=== PATIENT | male | born 1955 | race Caucasian/White ===

== ENCOUNTER → 2020-03-15 | Outpatient (CLI) | payer BC, SELFPAY ==
--- NOTE | 2020-03-15 14:46 | CT_ITS ---
STUDY: CT SCAN LOWER EXTREMITY RIGHT REASON FOR EXAM: Male, 64 years old. RT HIP OSTEOARTHRITIS, RAMIN PROTOCOL RADIATION DOSAGE (If Supplied By Facility): CTDIvol = ( 24.52 ) mGy, DLP = ( 1762.43 ) mGycm. Individualized dose optimization techniques were used for this CT.? TECHNIQUE: Multiple axial tomographic images of the hip joint, and knee joint were obtained. Coronal and sagittal reconstruction was obtained as well. COMPARISON: None. FINDINGS: There is evidence of a degenerative changes of the sacroiliac joints bilaterally. Marked degree of osteoarthritis involving both hip joints with marginal osteophytes involving the right acetabulum. Subchondral geodes are seen involving the right femoral head and right acetabulum. Mild narrowing of the lateral compartment of the right knee joint. CT/Extremity Lower without Contra IMPRESSION: Severe osteoarthritis involving the right hip joint as described. Electronically Signed: Néstor Jack, at 15:51 EDT , Service support ,
--- NOTE | 2020-03-15 14:48 | EKG12_ITS ---
Test Reason : PREOP Blood Pressure : / mmHG Vent. Rate : 082 BPM Atrial Rate : 082 BPM P-R Int : 186 ms QRS Dur : 100 ms QT Int : 386 ms P-R-T Axes : 027 002 008 degrees QTc Int : 450 ms Sinus rhythm with occasional Premature ventricular complexes Otherwise normal ECG Confirmed by NIKOLAS TINOCO, DMITRY ([id number]), school photograph editor DARYN ARAUJO ([id number]) on 03/19/2020 1:12:17 PM Referred By: GUSTAVO Confirmed By:BURT CONNOR MD
== END | disposition home or self-care (01) ==
LOC: CT 14:45
PROVIDERS: PCP Family Medicine; Visit Provider Specialist
DX: M16.11 Unilateral primary osteoarthritis, right hip (principal)
CPT/HCPCS: 73700; 93005

== ENCOUNTER → 2020-03-21 08:00 | Outpatient (CLI) | payer BC, SELFPAY ==
--- NOTE | 2020-03-16 08:09 | PCM.HP.BLA ---
History and Physical History and Physical [facility] Patient Name: Isiah Hendricks : 1955 From: ODALYS CLAY PA-C DATE OF SURGERY: 04/04/2020 SCHEDULED PROCEDURE: right robotic total hip arthroplasty HISTORY OF PRESENT ILLNESS: Preoperative history and physical exam was performed on March 15, 2020. This is a 64-year-old male who is been having ongoing pain for the past 5-6 years with his right hip. Pain can reach as high as a 5/10 with activity. 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 Patient has increased pain with walking, standing. He does have start up pain. His pain as being constant, aching, sore. Patient has difficult time getting up and down off of the ground with work. Patient has attempted in his own pack, meloxicam, rest, ice, heat with no relief in symptoms. Patient denies previous surgery on the right hip. Patient denies any recent chest pain, shortness of breath, fevers chills, recent infections. He does have history of hypertension. Patient will be obtaining surgical clearance from the primary care physician. After failing conservative measures and discussing treatment options with Dr. Carlito Crowley, the patient does wish to proceed with a right total hip arthroplasty. REVIEW OF SYSTEMS: ROS: Const: Denies anorexia, change in appetite, fever, hard of hearing, vision problems and weight change. CV: Denies chest pain, heart murmur, irregular heartbeat and peripheral vascular disease. Resp: Denies asthma, cough, pneumonia, sleep apnea, SOB, tuberculosis and wheezing. GI: Denies constipation, diarrhea, difficulty swallowing, heartburn, nausea, bloody stools and vomiting. : Urinary: denies incontinence. Musculo: Denies leg swelling, limp, trouble walking and weakness. Skin: Denies Raynaud's, history of shingles and tattoo. Neuro: Denies ambulatory dysfunction, dizziness, numbness/tingling and tremor. Psych: Denies anxiety, depression, insomnia, mental illness and stress. Thomas/Lymph: Denies anemia, bleeding/bruising tendency and past transfusion. Reviewed, no changes. PAST MEDICAL HISTORY: Advance Care Plan: Other Directive, POA Effective Date: 12/09/2018 Other Directive, LIVING WILL Effective Date: 12/09/2018 PMH: Medical Problems: High Blood Pressure, Hypercholesterolemia Accidents: Fracture - RT TIB/FIB FX- A CHILD Surgical Hx: None Anesthesia Complications: None Assistive Devices: Glasses Reviewed, no changes. SOCIAL HISTORY: SH: Marital: .Occupation: [employer].Work Status: Currently Working.Hand Dominance: Left-handed. Personal Habits: Smoking: Patient has never smoked.Cigarette Use: Never Smoked Cigarettes.Alcohol: Denies use.Drug Use: Denies Use.Enjoy Exercising: Never Exercises. Reviewed, no changes. VITALS: T: 97.9 T: 36.6C ALLERGIES: No Known Drug Allergy MEDICATIONS: Oxycodone HCL 5 mg 1-2 tab by mouth every 4 hours, Promethazine HCL 12.5 mg 1-2 tablets by mouth every 6 hours, Famotidine 20 mg 1 by mouth every day, Transderm Scop (1.5 MG) 1 MG/3Days 1 patch behind ear every 3 days, Meloxicam 15 mg 1 by mouth every day, Simvastatin 20 mg 1 by mouth every day, Lisinopril-Hydrochlorothiazide 10-12.5 mg 1 tab PO bid, Amlodipine Besylate 10 mg 1 by mouth every day PRE-OP EXAM: General appearance:NORMAL Other: Eyes: Conjunctivae and lids: NORMAL Pupils: ERR Ears, Nose, Mouth, and Throat: NORMAL Other: Inspection of lips, teeth and gums: NORMAL Other: Neck: Examination of neck: no masses noted. Respiratory: Assessment of respiratory effort: NORMAL Other: Auscultation of lungs: clear to auscultation no wheezes, rhonchi or rales. Cardiovascular: Auscultation of heart: regular rate and rhythm, no murmurs, gallops or rubs. Exam of carotid arteries: NORMAL Other: Gastrointestinal: Exam of abdomen: soft, nontender, nondistended bowel sounds present. PHYSICAL EXAMINATION: Patient does walk with an antalgic gait. Right hip is cool to touch without erythema or signs of infection. Patient has limited range of motion of the right hip secondary to pain. Pain with passive hip flexion. Decreased strength right hip secondary to pain. Sensation intact to light touch. Neurovascularly intact. IMAGING STUDIES: Previous x-rays of the right hip reveal joint space narrowing, subchondral sclerosis, subchondral cyst formation with flattening of the femoral head and osteophyte formation consistent with severe grade 4 hypertrophic osteoarthritis. IMPRESSION: 1. Severe right hip for hypertrophic osteoarthritis 2. Hypertension 3. Hypercholesterolemia PLAN: Dr. Carlito Crowley did discuss and review with the patient all treatment options including surgical versus nonsurgical options. Patient does wish to proceed with the above-stated procedure. Potential risks, benefits, and complications of the procedure were discussed in detail including but not limited to , infection, nerve and blood vessel damage, persistent pain, numbness, tingling, paresthesias, blood clot, pulmonary embolism, and requirement for possible further surgery. The patient expressed full understanding and has no further questions for the doctor. Patient does agree to proceed with the above-stated procedure and has signed the surgery consent form. We discussed the current risks associated with COVID 19. This does include the risk of exposure while in the hospital. Patient was reassured local hospitals have low infection rates and are taking all necessary precautions to avoid exposure to patients. In addition, we discussed strategies that can be used to help limit exposure including those that limit the patient's time in the hospital. Also using strategies to limit the patient's need for continued inpatient services after being discharged from the hospital. Patient was notified that we will need to comply with any screening or testing the hospital wishes to perform or that surgery may be delayed for any positive results. This dictation was created using voice recognition software. Phonetic and/or grammatical errors may exist. ___ I have re-examined the patient. There are no clinical changes since date of exam. ___ See progress notes for changes. ___ Dictated on admission Date: Time: Signature:
== END ==
PROVIDERS: PCP Family Medicine; Visit Provider Specialist
DX: Z01.810 Encounter for preprocedural cardiovascular examination (principal); Z01.818 Encounter for other preprocedural examination
CPT/HCPCS: 87077; 87081

== ENCOUNTER → 2020-03-29 13:25 | Outpatient (CLI) | payer BC, SELFPAY | PROVIDERS: PCP Family Medicine; Visit Provider Family Medicine | DX: E11.9 Type 2 diabetes mellitus without complications (principal); Z20.828 Contact with and (suspected) exposure to other viral communicable diseases | CPT/HCPCS: 87635; G2023; U0004 ==

== ENCOUNTER 2020-05-09 07:25 | Day surgery (SDC) | payer BC, SELFPAY ==
[2020-05-02 16:22] LABS: Absolute Lymphocyte Count 1.32 X10^3/uL (0.83-4.51); Absolute Neutrophil Count 3.1 X10^3/uL (2.0-7.7); Basophil# 0.06 X10^3/uL; Basophil% 1.1 % (0-1); Eosinophil# 0.17 X10^3/uL; Hematocrit 47.6 % (40-54); Hemoglobin 16.2 g/dL (13.0-16.5); Lymphocyte # 1.32 X10^3/ul (4.0); Lymphocyte % 23.2 % (19-41); Mean Corpuscular Hgb 30.1 pg (27.0-32.0); Mean Corpuscular Volume 88.5 fL (80-94); Mean Platelet Vol. 9.5 fl (6.2-12.0); Monocyte# 1.04 X10^3/uL; Monocyte% 18.3 % (0-10); NRBC Flagged by Analyzer 0 % (0-5); Neutrophil # 3.07 X10^3/uL (2.7-7.7); Platelet Count 185 K/mm3 (150-450); RBC Distribution Width CV 14.4 % (11.6-14.6); RBC Distribution Width SD 45.4 fl (35.1-43.9); Red Blood Count 5.38 M/mm3 (4.6-6.2); White Blood Count 5.7 K/mm3 (4.4-11.0)
[2020-05-02 16:50] LABS: Anion Gap 6 (5-15); BUN 24 mg/dL (7-18); BUN/Creat Ratio 23.8 RATIO (10-20); Calcium,Total 8.9 mg/dL (8.5-10.1); Chloride 106 mmol/L (98-107); Creatinine, Serum 1.01 mg/dL (0.70-1.30); EST Glomerular Filtration Rate 79 mL/min (>60); Est Glom Filt Rate - Afr Amer 96 mL/min (>60); Glucose 91 mg/dL (74-106); Potassium 3.8 mmol/L (3.5-5.1); Sodium Level 140 mmol/L (136-145)
--- NOTE | 2020-05-04 22:38 | PCM.HP.BLA ---
History and Physical History and Physical Patient Name: Isiah Hendricks : 1955 From: VLADIMIR SCRUGGS NP DATE OF SURGERY: 05/09/2020 SCHEDULED PROCEDURE: Robotic right total hip arthroplasty HISTORY OF PRESENT ILLNESS: Preoperative history and physical exam was performed on May 02, 2020. This is a 64-year-old male who has been having ongoing right hip pain for the last 5-6 years. The pain is 5 on a scale of 10 with activity. He describes the pain as constant, aching and sore. 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 The pain is made worse with walking and standing. He does experience start up pain. Previous treatments include rest, ice, heat and meloxicam. He denies previous surgery on the right hip. The patient does have a medical history pertinent for hypertension. Surgical clearance will be obtained from his primary care provider. He denies chest pain, fevers, chills, shortness of breath or recent infections. After failing conservative measures and discussing treatment options with Dr. Carlito Crowley the patient does wish to proceed with a right total hip arthroplasty. REVIEW OF SYSTEMS: ROS: Const: Denies anorexia, change in appetite, fever, hard of hearing, vision problems and weight change. CV: Denies chest pain, heart murmur, irregular heartbeat and peripheral vascular disease. Resp: Denies asthma, cough, pneumonia, sleep apnea, SOB, tuberculosis and wheezing. GI: Denies constipation, diarrhea, difficulty swallowing, heartburn, nausea, bloody stools and vomiting. : Urinary: denies incontinence. Musculo: Denies leg swelling, limp, trouble walking and weakness. Skin: Denies Raynaud's, history of shingles and tattoo. Neuro: Denies ambulatory dysfunction, dizziness, numbness/tingling and tremor. Psych: Denies anxiety, depression, insomnia, mental illness and stress. Thomas/Lymph: Denies anemia, bleeding/bruising tendency and past transfusion. Reviewed, no changes. PAST MEDICAL HISTORY: Advance Care Plan: Other Directive, POA Effective Date: 12/09/2018 Other Directive, LIVING WILL Effective Date: 12/09/2018 PMH: Medical Problems: High Blood Pressure, Hypercholesterolemia Accidents: Fracture - RT TIB/FIB FX- A CHILD Surgical Hx: None Anesthesia Complications: None Assistive Devices: Glasses Reviewed, no changes. SOCIAL HISTORY: SH: Marital: .Occupation: [employer].Work Status: Currently Working.Hand Dominance: Left-handed. Personal Habits: Smoking: Patient has never smoked.Cigarette Use: Never Smoked Cigarettes.Alcohol: Denies use.Drug Use: Denies Use.Enjoy Exercising: Never Exercises. Reviewed, no changes. VITALS: Ht: 70 Wt: 280lb 4oz Wt k.121 BMI: 40.2 BP: 118/64 Pulse: 100 Resp: 20 T: 97.5 T: 36.4C ALLERGIES: No Known Drug Allergy MEDICATIONS: Mupirocin 2 % use qtip and apply inside each nostril twice a day 5 days before surgery, Oxycodone HCL 5 mg 1-2 tab by mouth every 4 hours, Promethazine HCL 12.5 mg 1-2 tablets by mouth every 6 hours, Famotidine 20 mg 1 by mouth every day, Transderm Scop (1.5 MG) 1 MG/3Days 1 patch behind ear every 3 days, Meloxicam 15 mg 1 by mouth every day, Simvastatin 20 mg 1 by mouth every day, Lisinopril-Hydrochlorothiazide 20-12.5 mg 1 tab PO bid, Amlodipine Besylate 10 mg 1 by mouth every day, Vitamin D3 25 mcg (1000 Ut) 1 by mouth daily PRE-OP EXAM: General appearance:NORMAL Other: Eyes: Conjunctivae and lids: NORMAL Pupils: ERR Ears, Nose, Mouth, and Throat: NORMAL Other: Inspection of lips, teeth and gums: NORMAL Other: Respiratory: Assessment of respiratory effort: NORMAL Other: Auscultation of lungs: clear to auscultation no wheezes, rhonchi or rales. Cardiovascular: Auscultation of heart: regular rate and rhythm, no murmurs, gallops or rubs. Gastrointestinal: Exam of abdomen: soft, nontender, nondistended bowel sounds present. Neurological: see below Psychiatric: Orientation to time, place and person: NORMAL Other: Mood and affect: NORMAL Other: PHYSICAL EXAMINATION: The patient ambulates with an antalgic gait. Right hip is cool to touch without erythema or signs of infection. Patient has limited range of motion of the right hip secondary to pain. Pain with passive hip flexion. Decreased strength in right hip secondary to pain. Sensation intact to light touch. Neurovascularly intact. IMAGING STUDIES: X-rays of right hip reveal joint space narrowing, subchondral sclerosis, subchondral cyst formation with flattening of the femoral head and osteophyte formation consistent with severe grade 4 hypertrophic osteoarthritis. IMPRESSION: 1. Severe right hip hypertrophic osteoarthritis 2. Hypertension 3. Hypercholesterolemia PLAN: Dr. Carlito Crowley did discuss and review with the patient all treatment options including surgical versus nonsurgical. The patient does wish to proceed with the above-stated procedure. Potential risk, benefits and complications of the procedure were discussed in detail including but not limited to , infection, nerve and blood vessel damage, persistent pain, numbness, tingling, paresthesia, blood clot, pulmonary embolism and requirement for possible further surgery. The patient expressed full understanding and has no further questions for the doctor. The patient does agree to proceed with the above-stated procedure and has signed the surgery consent form. Discussed with the patient the risks associated with the COVID-19 virus including the risk of exposure while at the hospital. The patient was reassured local hospitals have low infection rates and taken all necessary precautions to limit patient exposure to COVID-19. Limiting the patient's time in the hospital may decrease their exposure to COVID-19. The patient was notified that we will need to comply with any screening or testing the hospital wishes to perform and that surgery may be delayed for any positive test results. This dictation was created using voice recognition software. Phonetic and/or grammatical errors may exist.
[2020-05-09] VITALS (12 sets, daily range): BP systolic 102–125; BP diastolic 67–84; PULSE 69–101; RESP 16–18; TEMP 35.8–37; O2SAT 96–100; BMI 40.0
[2020-05-09 08:00] LABS: Bedside Glucose 86 mg/dL (70-110)
[2020-05-09] MEDS: Acetaminophen 500 MG Tablet 1000 MG PO ×2 (08:12→16:03)
[2020-05-09] MEDS: Gabapentin 600 MG Tablet PO (08:13)
[2020-05-09] MEDS: Lactated Ringers 1,000 ML 75 ML IV (08:18)
[2020-05-09] MEDS: dexAMETHasone 10 MG/ML Vial IV (09:33)
--- NOTE | 2020-05-09 10:28 | RAD_ITS ---
STUDY: X-RAY - PELVIS AND RIGHT HIP REASON FOR EXAM: Male, 64 years old. Robotic assist anterior right total hip. TECHNIQUE: 1 views of the pelvis and hip. COMPARISON: None. FINDINGS: Intraoperative imaging provided for right hip replacement. RAD/Hip 1 view with Pelvis IMPRESSION: Intraoperative imaging provided for right hip replacement. Electronically Signed: Néstor Jack, at 13:02 EDT , Service support ,
--- NOTE | 2020-05-09 11:15 | PCM.OPRPT ---
Report of Operation Date of Procedure: 05/09/20 Pre-Operative Diagnosis: Right hip primary osteoarthritis Post-Operative Diagnosis: Right hip primary osteoarthritis Surgery/Procedure Performed:: Right minimally invasive robotic assisted direct anterior total hip replacement Description of Surgical Findings:: Stable hip with equal leg lengths stock order lister: Noemi Burnett Type of Anesthesia:: Spinal Anesthesiologist: Gil Giles Special Medications: 2 g Ancef, 1 g TXA at incision, 1 g TXA closure, 10 mg Decadron, joint cocktail (5 mg Duramorph, 30 mL of 0.5% Ropivicaine, 1000 units of epinephrine, 30 mg of Toradol) Specimen's removed: Bony cuts Estimated Blood Loss (mL): 200 Fluids Replaced: 1000 mL crystalloid Description of Procedure: Components used: 1. Accolade 2 Lisa femoral stem size 5 132? 2. Lisa trident 2 acetabular shell size 58 mm 3. Lisa X3 polyethylene F 4. Lisa Biolox delta 36mm, -5mm femoral head Brief history operative indications: 64 yo m who failed conservative measures for their hip osteoarthritis. X-rays were consistent with osteoarthritis including joint space narrowing, osteophyte formation and subchondral cysts. Total hip replacement was discussed with the patient with risks and benefits including but not limited to blood loss, DVTs, PEs, neurovascular damage, dislocation, general risks of anesthesia including loss of life. Patient demonstrated an understanding medical clearance is obtained the patient was consented for surgery. Procedure: On the date of procedure the patient's R hip was marked in the preoperative area. Patient was then taken back to the operating room where anesthesia assumed control of the C-spine and airway and administered anesthetic. Patient was transferred to the operating table and placed in the supine position. The hips were placed at the break of the bed and a sacral bump was placed. The R lower extremity was then prepped out in a sterile fashion using chlorhexidine while the surgeon scrubbed. The PA was vital in the positioning of the patient. Upon reentering the room the R lower extremity was draped in the standard orthopedic fashion and the incision was marked. A timeout was called and everyone agreed upon the side, the site, the procedure be performed, antibody given, and patient's identity. 2 pins were placed in the left iliac crest and the array was attached. At this time incision was made through skin, subcutaneous tissue, and fat down to fascia. The fascia was then incised and the TFL was retracted laterally. A retractor was placed on the lateral border of the femoral neck. Attention was directed to the inferior portion of the approach and all crossing vessels were identified and appropriately coagulated. A retractor was then placed on the medial portion of the femoral neck. The anterior capsule was then cleared of all soft tissue and then H shaped capsulotomy was made. The retractors were then placed inside the capsule. Checkpoint was placed in the femur and the femur checkpoints were registered. The femoral neck was identified and a cleanup cut was made. At this time a power corkscrew was used to remove the femoral head. Attention was then turned toward the acetabulum where the soft tissues were appropriately retracted and acetabulum was registered on the [email or web address]) robotic system. The acetabulum was sequentially reamed to 58 mm using the robotic arm. A 58 mm cup was then selected and impacted into place using the robotic arm. Acetabular liner was impacted into place and locking mechanism was verified. The position of the acetabular cup was then verified under live fluoroscopy. Attention was then turned to the femur. Soft tissue releases on the medial and lateral femoral neck were appropriately done, the leg was externally rotated and lateralized. A Hooks retractor was placed medially and proximally to the greater trochanter this allowed appropriate visualization and exposure of the femoral canal. Rongeour was then used to remove excess lateral bone. A canal finder and entry broach were used to open the proximal canal. Once we verified we were down the femoral canal we subsequently broached up to a size 5 femur. The appropriate neck was placed in the previously selected head was trialed with a -5 mm neck. Traction was pulled and the hip was reduced with internal rotation. Once it was appropriately reduced and stability was checked. There was minimal shuck, equal leg lengths and appropriate stability with hyperextension and external rotation as well as with 90? flexion and internal rotation. Fluoroscopy was then also used to verify the position of the components and leg lengths using the contralateral side for comparison. The trial components were then dislocated the proximal femur was again exposed and the components were removed from the wound. The final components were verified and opened. The wound was copiously irrigated out with normal saline. The acetabulum was checked for any residual debris. The final components were placed and impacted. Traction and internal rotation were again used to reduce the hip. After adequate reduction the hip remained stable with appropriate leg lengths. The final components were once again checked with live fluoroscopy and were found to be satisfactory. The wound was then copiously irrigated with normal saline once more, and hemostasis was obtained. Closure was then done using #1 Vicryl runner to close the fascia. A 2-0 vicryl interuppted sutures were used to close the subcutaneous skin. A 3-0 Monocryl and Steri-Strips were used for final skin closure. A Silverlon dressing was placed. Patient was awakened by anesthesia and transferred to the [facility]. Patient was then transferred to the PACU for recovery. Postoperative plan: Patient will get 24 hours postop antibiotics. Patient will get in-house physical therapy and will be weight-bear as tolerated. Patient will follow up in office in 2 weeks for a wound check and x-rays. Grafts/Implants Used: [place] - Complications No intraoperative complications - Admit VTE Documentation VTE Present on Admission: No VTE Mechan Device Prophylaxis: SCD's, Thigh High JON Hose VTE Pharm Prophylaxis ordered?: Yes
--- NOTE | 2020-05-09 11:56 | RAD_ITS ---
STUDY: X-RAY - PELVIS AND RIGHT HIP REASON FOR EXAM: Male, 64 years old. POST OP TECHNIQUE: 3 views of the pelvis and hip. COMPARISON: Comparison is made with prior examination done earlier today. FINDINGS: The patient is status post right total hip replacement. There is good alignment. Postoperative soft tissue changes. Moderate degree of osteoarthritis involving the left hip joint. RAD/Hip Min 2 Views (Portable) IMPRESSION: Status post right total hip replacement. There is good alignment. Postoperative soft tissue changes. Electronically Signed: Néstor Jack, at 13:03 EDT , Service support ,
[2020-05-09] MEDS: Cefazolin 1 GM/50 ML BAG IV (15:02)
--- NOTE | 2020-05-09 16:01 | SUR.PHASEII ---
PT. BLADER SCANNED FOR 850 PT. UP TO ATEMPT VOID TWICE. STARIGHT CATH FOR 750 CC OF CLEAR YELLOW.
[2020-05-09] MEDS: Finasteride 5 MG Tablet PO (17:36)
== END 2020-05-09 17:36 | disposition home or self-care (01) ==
LOC: SDC 07:27 → AC 07:29
PROVIDERS: Anesthesiology; Registered Nurse; PCP Family Medicine; Referring Provider Specialist; Visit Provider Specialist
PROC: 8E0Y0CZ Robotic Assisted Procedure of Lower Extremity, Open Approach (ICD-10-PCS; CPT 27130; principal; 2020-05-09 09:00)
DX: M16.11 Unilateral primary osteoarthritis, right hip (principal); I10 Essential (primary) hypertension; E78.00 Pure hypercholesterolemia, unspecified; Z79.899 Other long term (current) drug therapy; Z79.1 Long term (current) use of non-steroidal anti-inflammatories (NSAID)
CPT/HCPCS: 27130; 36415; 73501; 73502; 76000; 80048; 82962; 85025; 87081; 87635; 97162; 97166; C1776; G2023; J7120; U0003

== ENCOUNTER 2024-02-12 09:41 | Emergency (ER) | payer MEDICARE, BC, SELFPAY ==
[2024-02-12 09:41] VITALS: BP 185/86; PULSE 95; RESP 14; TEMP 36.1; O2SAT 97; BMI 34.4
--- NOTE | 2024-02-12 10:08 | CT_ITS ---
STUDY: CT ABDOMEN AND PELVIS WITHOUT CONTRAST REASON FOR EXAM: Male, 68 years old. Flank pain, renal failure RADIATION DOSAGE (If Supplied By Facility): CTDIvol = ( 16.62 ) mGy, DLP = ( 954.99 ) mGycm TECHNIQUE: Transaxial images were obtained from the dome of the diaphragm to the symphysis pubis without oral contrast, and without intravenous contrast. Sagittal and coronal images were reconstructed. Individualized dose optimization techniques were used for this CT. COMPARISON: None. FINDINGS: The visualized lung bases are unremarkable. Coronary artery calcifications. 9 mm cyst in the inferior aspect of the right lobe of the liver. Normal gallbladder and extrahepatic biliary system. Normal spleen. Normal pancreas. Normal bilateral adrenal glands. Moderate degree of bilateral hydronephrosis and hydroureter down to the urinary bladder. Normal visualized stomach. Normal small intestine. Normal colon. The appendix is visualized and appears normal. There is diffuse atherosclerotic calcification of the abdominal aorta and its major visceral branches, without a demonstrated aneurysm. Normal inferior vena cava. Normal retroperitoneum. Distended urinary bladder. The prostate measures 4.9 cm x 5.1 cm. There is a left-sided inguinal hernia containing adipose tissue. There are prior right total hip replacement. Degenerative changes of the visualized lumbar spine. CT/Abdomen/Pelvis without Cont IMPRESSION: Distended urinary bladder. Moderate degree of bilateral hydronephrosis and hydroureter down to the urinary bladder. Electronically Signed: Néstor Jack MD at 11:51 EDT ,
--- NOTE | 2024-02-12 10:09 | EX.ED.DYSGE1 ---
HPI History of Present Illness Chief Complaint: Abn Labs Detail of Chief Complaint: Renal failure Informant: patient Narrative Narrative: Patient presents secondary to abnormal blood work that was obtained this morning. Patient states that his normal physical exam in September his BUN was 21 and his creatinine was 1.36. They decided to recheck his lab work in 6 months. Over the last 4 to 6 weeks he has noted increased thirst and increased urination. He had his lab work repeated this morning and revealed a BUN of 64 and a creatinine of 3.63. Patient does report some intermittent right flank pain. He states he has been told in the past that he had an enlarged prostate but had a normal PSA level. He does feel that he is urinating frequently but is emptying completely. He has otherwise felt well. [facility] Medical History Hyperlipidemia Hypertension Home Medications amlodipine 10 mg tablet 10 mg PO DAILY HTN 03/21/20 [History Last Taken 05/09/20] meloxicam 15 mg tablet 15 mg PO DAILY PAIN 03/21/20 [History Last Taken 05/04/20] simvastatin 20 mg tablet 20 mg PO QHS CHOLESTEROL 03/21/20 [History Last Taken 05/08/20] lisinopril 20 mg tablet 20 mg PO DAILY 02/12/24 [History Last Taken Unknown] tamsulosin 0.4 mg capsule (Flomax) 0.4 mg PO DAILY #30 caps 02/12/24 [Rx Last Taken Unknown] Allergy/AdvReac Type Severity Reaction Status Date / Time No Known Allergies Allergy Verified 02/12/24 09:42 Social History Smoking Status: Never smoker ROS ROS ED Constitutional Constitutional ED: Denies chills or fever(s) Eyes Eyes: Denies discharge from eye(s) ENT ENT ED: Denies discharge from eye(s), rhinorrhea or sore throat Cardiovascular Cardiovascular: Denies chest pain or palpitations Respiratory/Chest Respiratory/Chest: Denies cough or dyspnea Gastrointestinal Gastrointestinal: Denies abdominal pain, nausea or vomiting Genitourinary Genitourinary ED: Reports urinary frequency; Denies dysuria Musculoskeletal Musculoskeletal: Reports back pain; Denies extremity pain Integumentary Denies Abrasions or rash Neurologic Neurologic: Denies headache(s) or weakness Psychiatric Psychiatric: Denies anxiety or depression Allergic/Immunologic Allergic/Immunologic ED: Denies lip swelling or urticaria EXAM Physical Exam Const Vital Signs: 02/12/24 09:41 02/12/24 10:06 02/12/24 11:19 Temperature 97 F L 98.6 F Temperature Source Temporal Oral Pulse Rate 95 67 Respiratory Rate 14 16 Respiratory Effort Normal Non-Labored Respiratory Pattern Normal Blood Pressure 185/86 H 146/83 H Blood Pressure Mean 119 104 Pulse Ox 97 97 Oxygen Delivery Method Room Air Room Air Positive well nourished and well developed General Appearance ED: well developed HEENT Reports moist mucous membranes Eyes EOMs intact bilaterally Chest Wall inspection of chest normal and palpation of chest normal Resp normal respiratory effort and clear to auscultation bilaterally Cardio regular rate and regular rhythm GI non-tender Palpation: soft Extremity normal to inspection Neuro oriented x3 and no sensory deficits noted Motor Exam: strength 5/5 throughout Psych mental status grossly normal Skin no rashes or lesions noted MDM MDM MDM Narrative Medical decision making narrative: IV line established. Labwork obtained to evaluate for leukocytosis, anemia, and electrolyte derangement. IV fluids given. Urinalysis obtained to evaluate for infection/hematuria. CT flank will be obtained to evaluate for potential urinary retention/hydronephrosis. History & Record Review Discussion w/independent historian: Patient and Significant other Additional record(s) reviewed:: Prior labs Lab Data Attestation: I reviewed the patient's lab results. Labs: Laboratory Results - last 24 hr 02/12/24 02/12/24 10:10 11:20 WBC 4.1 L RBC 4.03 L Hgb 11.8 L Hct 34.6 L MCV 85.9 MCH 29.3 MCHC 34.1 RDW Std Deviation 42.3 RDW Coeff of Izabel 13.5 Plt Count 190 MPV 10.2 Immature Gran % (Auto) 0.500 Neut % (Auto) 58.1 Lymph % (Auto) 20.2 [place] % (Auto) 14.0 H Eos % (Auto) 5.7 H Baso % (Auto) 1.5 H Absolute Neuts (auto) 2.4 Absolute Lymphs (auto) 0.82 L Nucleated RBC % 0 Sodium 142 Potassium 4.1 Chloride 112 H Carbon Dioxide 23.0 Anion Gap 7 BUN 64 H Creatinine 3.97 H Estim Creat Clear Calc 22.33 Est GFR (MDRD) Af Amer 20 L Est GFR (MDRD) Non-Af 16 L BUN/Creatinine Ratio 16.1 Glucose 119 H Calcium 9.0 Urine Color Yellow Urine Clarity Clear Urine pH 5.0 Ur Specific [place] 1.010 Urine Protein Negative Urine Glucose (UA) Normal Urine Ketones Negative Urine Occult Blood 10 H Urine Nitrite Negative Urine Bilirubin Negative Urine Urobilinogen Normal Ur Leukocyte Esterase Negative Treatment and Re-Evaluation :: CBC was a white count of 4.1 with a hemoglobin 11.8. Chemistry studies significant for BUN of 64 and a creatinine of 3.97. Glucose is 119. Urinalysis reveals no evidence of infection. CT flank per my interpretation reveals urinary retention with hydronephrosis and hydroureter. Graham catheter is placed. Patient has had just over 1200 cc of urine drained. I did speak with Brad Carcamo who patient follows with at [facility]. Patient has a follow-up appointment on Thursday and they will recheck his labs at that time. Patient be sent home with a leg bag and I will write him a prescription for Flomax. Discharge Plan Triage Chief Complaint: Abn Labs ED Provider: Lorrie Urban Dx/Rx/DC Orders Clinical Impression: Acute renal failure, Urinary retention Instructions: ED Graham Catheter, Care, ED Urinary Retention, Male Prescriptions: New tamsulosin [Flomax] 0.4 mg capsule 0.4 mg PO DAILY Qty: 30 0RF No Action meloxicam 15 MG tablet 15 mg PO DAILY amlodipine 10 MG tablet 10 mg PO DAILY simvastatin 20 MG tablet 20 mg PO QHS lisinopril 20 mg tablet 20 mg PO DAILY Primary Care Provider: Brad Carcamo NP Referrals: Brad Carcamo NP, PLASTIC PRESS OPERATOR-C [Primary Care Provider] - [facility] appointment Disposition Disposition: Home, Self Care
[2024-02-12 10:30] LABS: Absolute Lymphocyte Count 0.82 X10^3/uL (0.83-4.51); Absolute Neutrophil Count 2.4 X10^3/uL (2.0-7.7); Basophil# 0.06 X10^3/uL; Basophil% 1.5 % (0-1); Eosinophil# 0.23 X10^3/uL; Eosinophils% 5.7 % (0-5); Hematocrit 34.6 % (40-54); Hemoglobin 11.8 g/dL (13.0-16.5); Lymphocyte # 0.82 X10^3/ul (0.83-4.51); Lymphocyte % 20.2 % (19-41); Mean Corp Hgb Conc 34.1 g/dL (32-36); Mean Corpuscular Hgb 29.3 pg (27.0-32.0); Mean Corpuscular Volume 85.9 fL (80-94); Mean Platelet Vol. 10.2 fl (6.2-12.0); Monocyte# 0.57 X10^3/uL; NRBC Flagged by Analyzer 0 % (0-5); Neutrophil # 2.36 X10^3/uL (2.7-7.7); Neutrophil % 58.1 % (47-70); Platelet Count 190 K/mm3 (150-450); RBC Distribution Width CV 13.5 % (11.6-14.6); RBC Distribution Width SD 42.3 fl (35.1-43.9); Red Blood Count 4.03 M/mm3 (4.6-6.2); White Blood Count 4.1 K/mm3 (4.4-11.0)
[2024-02-12 10:37] LABS: Anion Gap 7 (5-15); BUN 64 mg/dL (7-18); BUN/Creat Ratio 16.1 RATIO (10-20); Chloride 112 mmol/L (98-107); Creatinine, Serum 3.97 mg/dL (0.70-1.30); EST Glomerular Filtration Rate 16 mL/min (>60); Est Glom Filt Rate - Afr Amer 20 mL/min (>60); Estimated Creatinine Clearance 22.33 ml/min; Glucose 119 mg/dL (74-106); Potassium 4.1 mmol/L (3.5-5.1); Sodium Level 142 mmol/L (136-145)
[2024-02-12] MEDS: 0.9% Normal Saline (1000mL) 1,000 ML 150 ML IV (10:43)
[2024-02-12 11:19] VITALS: BP 146/83; PULSE 67; RESP 16; TEMP 37; O2SAT 97
[2024-02-12 11:27] LABS: Bacteria 0 SEEN /hpf (None Seen); Mucous, Urine 0 SEEN /hpf (<or=2+); Squamous Epithelial Cells - UA 0 SEEN /hpf (0-5); White Blood Cells 0 SEEN /hpf (0-5)
[2024-02-12 11:40] LABS: Color, Urine Yellow (Yellow); Glucose, Dipstick Normal (Normal); Ketone-Dipstick Negative (Negative); Leukocyte Esterase-Dipstick Negative /ul (Negative); Nitrite-Dipstick Negative (Negative); Occult Blood-Urine 10 /ul (Negative); Protein-Dipstick Negative (Negative); Urine Bilirubin Dipstick Negative (Negative); Urine Clarity Clear (Clear); Urine Urobilinogen Normal (Normal)
[2024-02-12 11:47] LABS: Red Blood Cells-Urine 0-5 SEEN /hpf (0-5)
[2024-02-12 12:17] VITALS: BP 151/78; PULSE 63; RESP 16; TEMP 37; O2SAT 97
== END 2024-02-12 12:21 | disposition home or self-care (01) ==
PROVIDERS: Emergency Provider Emergency Medicine; PCP Nurse Practitioner Family; Visit Provider Emergency Medicine
DX: N17.9 Acute kidney failure, unspecified (principal); R33.9 Retention of urine, unspecified; E78.5 Hyperlipidemia, unspecified; I10 Essential (primary) hypertension
CPT/HCPCS: 51702; 74176; 80048; 81001; 85025; 96360; 96361; 99285; J7030

== ENCOUNTER 2024-02-15 07:47 | Emergency (ER) | payer MEDICARE, BC, SELFPAY ==
[2024-02-15 07:48] VITALS: BP 160/87; PULSE 102; RESP 16; TEMP 36.1; O2SAT 99; BMI 34.4
--- NOTE | 2024-02-15 07:56 | EX.ED.DYSGE1 ---
HPI History of Present Illness Chief Complaint: Graham C/O Informant: patient Onset/Context/Timing Onset: Today Context: Sudden Onset Timing: Continuous Quality: Leaking Location: Graham catheter Worsened by: Nothing Relieved by: Nothing Narrative Narrative: Patient presents with leaking around his Graham catheter that he noticed this morning. Patient states that it came on rather suddenly. Patient denies any dysuria or hematuria. Patient denies any fevers or chills. Patient states he was seen here in the emergency department 3 days ago for urinary retention and had a catheter placed at that time. Patient states that prior to that he has never had a Graham catheter. Patient states he was started on Flomax at that time. Patient denies any nausea or vomiting. [facility] Medical History Hyperlipidemia Hypertension Home Medications amlodipine 10 mg tablet 10 mg PO DAILY HTN 03/21/20 [History Last Taken 05/09/20] meloxicam 15 mg tablet 15 mg PO DAILY PAIN 03/21/20 [History Last Taken 05/04/20] simvastatin 20 mg tablet 20 mg PO QHS CHOLESTEROL 03/21/20 [History Last Taken 05/08/20] lisinopril 20 mg tablet 20 mg PO DAILY 02/12/24 [History Last Taken Unknown] tamsulosin 0.4 mg capsule (Flomax) 0.4 mg PO DAILY #30 caps 02/12/24 [Rx Last Taken Unknown] Allergy/AdvReac Type Severity Reaction Status Date / Time No Known Allergies Allergy Verified 02/15/24 07:48 Social History Smoking Status: Never smoker ROS ROS ED Constitutional Constitutional ED: Denies chills or fever(s) Eyes Eyes: Denies blurry vision or change in vision ENT ENT ED: Denies rhinorrhea or sore throat Cardiovascular Cardiovascular: Denies chest pain or palpitations Respiratory/Chest Respiratory/Chest: Denies cough or dyspnea Gastrointestinal Gastrointestinal: Denies nausea or vomiting Genitourinary Genitourinary ED: Denies dysuria or hematuria Musculoskeletal Musculoskeletal: Denies back pain or neck pain Integumentary Denies abscess or rash Neurologic Neurologic: Denies headache(s) or weakness Allergic/Immunologic Allergic/Immunologic ED: Denies mouth swelling or urticaria EXAM Physical Exam Const Vital Signs: 02/15/24 07:48 02/15/24 09:56 Temperature 97.0 F L 97.7 F L Temperature Source Temporal Pulse Rate 102 H 74 Respiratory Rate 16 18 Blood Pressure 160/87 H 134/72 H Blood Pressure Mean 111 92 Pulse Ox 99 99 Oxygen Delivery Method Room Air Positive well nourished, well developed and obese General Appearance ED: well developed and NAD Nutritional Appearance: obese HEENT Reports moist mucous membranes Neck supple and no JVD Cardio regular rate and regular rhythm GI non-tender and non-distended Palpation: soft Extremity normal to inspection Neuro oriented x3, CN's II-XII intact bilaterally and no sensory deficits noted Sensorium / Orientation: alert Motor Exam: strength 5/5 throughout Psych mental status grossly normal MDM MDM MDM Narrative Medical decision making narrative: Differential diagnosis includes dysfunctional Graham catheter, urinary tract infection, acute kidney injury, and electrolyte abnormality. Urinalysis will be obtained to assess for urinary tract infection. CBC will be obtained to assess for leukocytosis and anemia. Basic metabolic profile will be obtained to assess for electrolyte abnormality and renal function. History & Record Review Additional record(s) reviewed:: Prior labs Lab Data Attestation: I reviewed the patient's lab results. Lab results narrative: CBC was reviewed. There is a slight anemia with a hemoglobin of 11.7 and hematocrit 34.7. This is consistent with previous results. Basic metabolic profile was reviewed. BUN was 60 and creatinine was 2.86. These are improved compared to previous results. Urinalysis was reviewed. There is no evidence of urinary tract infection or hematuria. Labs: Laboratory Results - last 24 hr 02/15/24 08:35 WBC 6.8 RBC 3.99 L Hgb 11.7 L Hct 34.7 L MCV 87.0 MCH 29.3 MCHC 33.7 RDW Std Deviation 43.1 RDW Coeff of Izabel 13.5 Plt Count 192 MPV 10.5 Immature Gran % (Auto) 0.900 Neut % (Auto) 71.6 H Lymph % (Auto) 12.6 L [place] % (Auto) 11.3 H Eos % (Auto) 2.9 Baso % (Auto) 0.7 Absolute Neuts (auto) 4.9 Absolute Lymphs (auto) 0.86 Nucleated RBC % 0 Sodium 138 Potassium 4.0 Chloride 110 H Carbon Dioxide 22.0 Anion Gap 6 BUN 60 H Creatinine 2.86 H Estim Creat Clear Calc 30.96 Est GFR (MDRD) Af Amer 29 L Est GFR (MDRD) Non-Af 24 L BUN/Creatinine Ratio 21.0 H Glucose 120 H Calcium 8.8 Urine Color Straw Urine Clarity Clear Urine pH 5.0 Ur Specific [place] 1.015 Urine Protein 100 H Urine Glucose (UA) Normal Urine Ketones Negative Urine Occult Blood 250 H Urine Nitrite Negative Urine Bilirubin Negative Urine Urobilinogen Normal Ur Leukocyte Esterase Negative Urine RBC 0-5 SEEN Urine WBC 0-5 SEEN Ur Squamous Epith Cells 0 SEEN Amorphous Sediment 1+ Urine Bacteria 0 SEEN Urine Mucus 0 SEEN Treatment and Re-Evaluation :: The Graham catheter was removed. Patient was able to urinate without difficulty. Patient states he has an appointment with a urologist tomorrow. Patient was instructed to keep this appointment. Patient was instructed to continue his Flomax as prescribed. Patient was instructed to return if worse in any way. Patient understood and was agreeable with the plan. All questions were answered. Discharge Plan Triage Chief Complaint: Graham C/O ED Provider: Ajith Fuller Dx/Rx/DC Orders Clinical Impression: Obstructed Graham catheter, Urinary retention Instructions: ED Urinary Retention, Male Prescriptions: No Action meloxicam 15 MG tablet 15 mg PO DAILY amlodipine 10 MG tablet 10 mg PO DAILY simvastatin 20 MG tablet 20 mg PO QHS lisinopril 20 mg tablet 20 mg PO DAILY tamsulosin [Flomax] 0.4 mg capsule 0.4 mg PO DAILY Qty: 30 0RF Primary Care Provider: Brad Carcamo NP Referrals: Brad Carcamo NP, CHART COMPUTER-C [Primary Care Provider] - [facility] appointment Disposition Disposition: Home, Self Care Discharge Date/Time: 02/15/24 09:58
[2024-02-15 08:42] LABS: Bacteria 0 SEEN /hpf (None Seen); Mucous, Urine 0 SEEN /hpf (<or=2+); Squamous Epithelial Cells - UA 0 SEEN /hpf (0-5)
[2024-02-15 08:48] LABS: Color, Urine Straw (Yellow); Glucose, Dipstick Normal (Normal); Ketone-Dipstick Negative (Negative); Leukocyte Esterase-Dipstick Negative /ul (Negative); Nitrite-Dipstick Negative (Negative); Occult Blood-Urine 250 /ul (Negative); Protein-Dipstick 100 mg/dl (Negative); Specific Gravity, Urine 1.015 (1.002-1.030); Urine Bilirubin Dipstick Negative (Negative); Urine Clarity Clear (Clear); Urine Urobilinogen Normal (Normal)
[2024-02-15 08:55] LABS: Absolute Lymphocyte Count 0.86 X10^3/uL (0.83-4.51); Absolute Neutrophil Count 4.9 X10^3/uL (2.0-7.7); Basophil# 0.05 X10^3/uL; Basophil% 0.7 % (0-1); Eosinophils% 2.9 % (0-5); Hematocrit 34.7 % (40-54); Hemoglobin 11.7 g/dL (13.0-16.5); Lymphocyte # 0.86 X10^3/ul (0.83-4.51); Lymphocyte % 12.6 % (19-41); Mean Corp Hgb Conc 33.7 g/dL (32-36); Mean Corpuscular Hgb 29.3 pg (27.0-32.0); Mean Platelet Vol. 10.5 fl (6.2-12.0); Monocyte# 0.77 X10^3/uL; Monocyte% 11.3 % (0-10); NRBC Flagged by Analyzer 0 % (0-5); Neutrophil # 4.86 X10^3/uL (2.7-7.7); Neutrophil % 71.6 % (47-70); Platelet Count 192 K/mm3 (150-450); RBC Distribution Width CV 13.5 % (11.6-14.6); RBC Distribution Width SD 43.1 fl (35.1-43.9); Red Blood Count 3.99 M/mm3 (4.6-6.2); White Blood Count 6.8 K/mm3 (4.4-11.0)
[2024-02-15 09:02] LABS: Anion Gap 6 (5-15); BUN 60 mg/dL (7-18); Calcium,Total 8.8 mg/dL (8.5-10.1); Chloride 110 mmol/L (98-107); Creatinine, Serum 2.86 mg/dL (0.70-1.30); EST Glomerular Filtration Rate 24 mL/min (>60); Est Glom Filt Rate - Afr Amer 29 mL/min (>60); Estimated Creatinine Clearance 30.96 ml/min; Glucose 120 mg/dL (74-106); Sodium Level 138 mmol/L (136-145)
[2024-02-15 09:29] LABS: Amorphous Sediment 1+; Red Blood Cells-Urine 0-5 SEEN /hpf (0-5); White Blood Cells 0-5 SEEN /hpf (0-5)
--- NOTE | 2024-02-15 09:31 | NURSING ---
02/15/24@ 0840- F/C dc without complications. Pt tolerated well.
[2024-02-15 09:56] VITALS: BP 134/72; PULSE 74; RESP 18; TEMP 36.5; O2SAT 99
== END 2024-02-15 09:58 | disposition home or self-care (01) ==
PROVIDERS: Emergency Provider Emergency Medicine; PCP Nurse Practitioner Family; Visit Provider Emergency Medicine
DX: T83.091A Other mechanical complication of indwelling urethral catheter, initial encounter (principal); R33.9 Retention of urine, unspecified; I10 Essential (primary) hypertension; E78.5 Hyperlipidemia, unspecified; E66.9 Obesity, unspecified; Y73.8 Miscellaneous gastroenterology and urology devices associated with adverse incidents, not elsewhere classified
CPT/HCPCS: 80048; 81001; 85025; 99283; A4216

== ENCOUNTER 2024-03-17 14:08 | Inpatient (IN) | payer MEDICARE, BC, SELFPAY ==
[2024-03-17] VITALS (7 sets, daily range): BP systolic 110–155; BP diastolic 54–77; PULSE 74–117; RESP 16–18; TEMP 36.2–38.2; O2SAT 95–98; BMI 34.2; BMI 33.4
--- NOTE | 2024-03-17 14:33 | EX.ED.GUMALE ---
HPI History of Present Illness Chief Complaint: Complaint Detail of Chief Complaint: Dysuria Informant: patient Narrative Narrative: Patient presents to the emergency department complaint of dysuria that started last evening. Patient states that normally he self caths at home but he has been running low on catheters until tomorrow so he has been reusing some of the catheters and washing them. Patient had fever this morning up to 1021. He had chills last night. Comes in for evaluation. Patient denies abdominal pain. [facility] Medical History (Updated 03/17/24 @ 17:[address] Reina Copeland MD) Chronic anemia CKD (chronic kidney disease), stage III Obesity Self-catheterizes urinary bladder BPH (benign prostatic hyperplasia) Obstructive uropathy Hyperlipidemia Hypertension Home Medications ?Medication ?Instructions ?Recorded ?Last Taken ?Type amlodipine 10 mg tablet 10 mg PO DAILY HTN 03/21/20 03/17/24 History simvastatin 20 mg tablet 20 mg PO QHS CHOLESTEROL 03/21/20 03/16/24 History lisinopril 20 mg tablet 20 mg PO DAILY 02/12/24 03/17/24 History tamsulosin 0.4 mg capsule (Flomax) 0.4 mg PO QHS 03/17/24 03/16/24 History Allergy/AdvReac Type Severity Reaction Status Date / Time No Known Allergies Allergy Verified 03/17/24 14:10 Surgical History (Updated 03/17/24 @ 17:[address] Reina Copeland MD) History of total right hip replacement Social History (Updated 03/17/24 @ 17:[address] Reina Copeland MD) household members: spouse Smoking Status: Never smoker alcohol intake: never substance use type: does not use ROS ROS ED Review of Systems ROS Unobtainable: other Constitutional Constitutional ED: Reports fever(s) and lethargy; Denies chills, sweats or weight loss Eyes Eyes: Denies blurry vision, change in vision or diplopia ENT ENT ED: Denies rhinorrhea or sore throat Cardiovascular Cardiovascular: Denies chest pain, orthopnea or racing heartbeat Respiratory/Chest Respiratory/Chest: Denies cough, dyspnea, dyspnea on exertion, orthopnea or sputum Gastrointestinal Gastrointestinal: Denies abdominal pain, diarrhea, nausea or vomiting Genitourinary Genitourinary ED: Reports dysuria; Denies hematuria or urinary frequency Musculoskeletal Musculoskeletal: Denies arthralgias, back pain, myalgias or neck pain Integumentary Denies abscess, Abrasions or rash Neurologic Neurologic: Denies headache(s) or weakness Psychiatric Psychiatric: Denies anxiety, depression or suicidal thoughts Endocrine Endocrinology: Denies polydipsia, polyphagia or polyuria Hematologic/Lymphatic Hematologic/Lymphatic: Denies easy bleeding, easy bruising or lymphadenopathy Allergic/Immunologic Allergic/Immunologic ED: Denies mouth swelling, tongue swelling or urticaria EXAM Physical Exam Const Vital Signs: 03/17/24 14:10 03/17/24 16:09 Temperature 99.4 F H Temperature Source Temporal Pulse Rate 117 H 74 Respiratory Rate 18 16 Blood Pressure 146/68 H 132/77 H Blood Pressure Mean 94 95 Pulse Ox 98 98 Oxygen Delivery Method Room Air Room Air Positive well nourished and well developed General Appearance ED: well developed and NAD HEENT Reports TM's clear and moist mucous membranes normocephalic and atraumatic; Negative for trauma or tenderness Tympanic Membrane ED: Yes TM's clear Eyes PERRL and EOMs intact bilaterally General Eye ED: Negative for pale conjunctiva or scleral icterus Neck no lymphadenopathy, supple and no JVD General: Negative for tenderness Chest Wall inspection of chest normal and palpation of chest normal Chest: Negative for tenderness Resp normal respiratory effort and clear to auscultation bilaterally Effort and Inspection: Negative for respiratory distress or pain with movement Auscultation: Negative for rhonchi, wheezes or diminished lung sounds Cardio regular rate, regular rhythm, S1 normal heart sound, S2 normal heart sound and no murmurs Peripheral Pulses: pulses 2+ throughout GI normal to inspection, nondistended, normoactive bowel sounds, soft to palpation, non-tender, non-distended and no masses Back/Spine no CVA tenderness and no thoracic nor lumbar tenderness Extremity normal to inspection General Extremety ED: Negative for edema General Extremity: Negative for edema Neuro oriented x3, CN's II-XII intact bilaterally, no sensory deficits noted and gait normal Sensorium / Orientation: awake, alert, oriented to person, oriented to place and oriented to time Motor Exam: strength 5/5 throughout and strength abnormal Psych mental status grossly normal Skin no rashes or lesions noted and no wounds MDM MDM MDM Narrative Medical decision making narrative: Patient presents with dysuria and fever. Patient self caths. Concern for UTI. Patient presented tachycardic and describing chills. IV line established. CBC with differential obtained showed a white count of 16.7 with hemoglobin 12 and platelet count of 179. Chemistries unremarkable. BUN was 26 and creatinine 2.02. Urinalysis positive for 500 leukocyte Estrace and 5-10 WBCs and +1 bacteria. Urine culture sent. CT scan of the abdomen pelvis was also ordered to evaluate further for any other intra-abdominal process. Official report pending from radiology. Case discussed with hospitalist will evaluate patient for admission Lab Data Attestation: I reviewed the patient's lab results. Labs: Laboratory Results - last 24 hr 03/17/24 03/17/24 14:30 15:35 WBC 16.7 H RBC 4.09 L Hgb 12.4 L Hct 36.4 L MCV 89.0 MCH 30.3 MCHC 34.1 RDW Std Deviation 44.4 H RDW Coeff of Izabel 13.8 Plt Count 179 MPV 10.0 Immature Gran % (Auto) 0.900 Neut % (Auto) 85.8 H Lymph % (Auto) 3.5 L [place] % (Auto) 9.6 Eos % (Auto) 0.0 Baso % (Auto) 0.2 Absolute Neuts (auto) 14.4 H Absolute Lymphs (auto) 0.59 L Nucleated RBC % 0 Differential Comment SEE COMMENTS Diff Path Review May foll Platelet Estimate ADEQUATE RBC Morphology N CHROM Anisocytosis RARE Sodium 133 L Potassium 3.7 Chloride 101 Carbon Dioxide 24.0 Anion Gap 8 BUN 26 H Creatinine 2.02 H Estim Creat Clear Calc 43.74 Est GFR (MDRD) Af Amer 43 L Est GFR (MDRD) Non-Af 35 L BUN/Creatinine Ratio 12.9 Glucose 130 H Lactic Acid 1.2 Calcium 9.0 Urine Color Yellow Urine Clarity Sl. Cloudy Urine pH 6.0 Ur Specific [place] 1.010 Urine Protein 30 H Urine Glucose (UA) Normal Urine Ketones 5 H Urine Occult Blood 150 H Urine Nitrite Negative Urine Bilirubin Negative Urine Urobilinogen Normal Ur Leukocyte Esterase 500 H Urine RBC 0 SEEN Urine WBC 5-10 SEEN Ur Squamous Epith Cells 0 SEEN Ur Renal Epithelial Cell 0 SEEN Urine Bacteria 1+ Urine Mucus 0 SEEN Discharge Plan Dx/Rx/DC Orders Clinical Impression: Acute UTI, Fever Disposition Disposition: Acute Care Hospital [facility]
[2024-03-17 15:07] LABS: Absolute Lymphocyte Count 0.59 X10^3/uL (0.83-4.51); Absolute Neutrophil Count 14.4 X10^3/uL (2.0-7.7); Basophil# 0.04 X10^3/uL; Basophil% 0.2 % (0-1); Hematocrit 36.4 % (40-54); Hemoglobin 12.4 g/dL (13.0-16.5); Lymphocyte # 0.59 X10^3/ul (0.83-4.51); Lymphocyte % 3.5 % (19-41); Mean Corp Hgb Conc 34.1 g/dL (32-36); Mean Corpuscular Hgb 30.3 pg (27.0-32.0); Monocyte% 9.6 % (0-10); NRBC Flagged by Analyzer 0 % (0-5); Neutrophil # 14.35 X10^3/uL (2.7-7.7); Neutrophil % 85.8 % (47-70); POSITIVE DIFFERENTIAL YES; Platelet Count 179 K/mm3 (150-450); RBC Distribution Width CV 13.8 % (11.6-14.6); RBC Distribution Width SD 44.4 fl (35.1-43.9); Red Blood Count 4.09 M/mm3 (4.6-6.2); White Blood Count 16.7 K/mm3 (4.4-11.0)
[2024-03-17 15:11] LABS: Differential Indicated SCAN CRITERIA MET
[2024-03-17 15:19] LABS: Anion Gap 8 (5-15); BUN 26 mg/dL (7-18); BUN/Creat Ratio 12.9 RATIO (10-20); Chloride 101 mmol/L (98-107); Creatinine, Serum 2.02 mg/dL (0.70-1.30); EST Glomerular Filtration Rate 35 mL/min (>60); Est Glom Filt Rate - Afr Amer 43 mL/min (>60); Estimated Creatinine Clearance 43.74 ml/min; Glucose 130 mg/dL (74-106); Potassium 3.7 mmol/L (3.5-5.1); Sodium Level 133 mmol/L (136-145)
[2024-03-17 15:27] LABS: Lactic Acid 1.2 mmol/L (0.4-1.9)
[2024-03-17 15:46] LABS: Mucous, Urine 0 SEEN /hpf (<or=2+); Red Blood Cells-Urine 0 SEEN /hpf (0-5); Squamous Epithelial Cells - UA 0 SEEN /hpf (0-5)
[2024-03-17 16:05] LABS: Differential Comment SEE COMMENTS
[2024-03-17 16:06] LABS: Anisocytosis RARE; Platelet Estimate ADEQUATE (ADEQ); Red Cell Morphology N CHROM NORMAL (NORM C&C)
[2024-03-17 16:12] LABS: Color, Urine Yellow (Yellow); Glucose, Dipstick Normal (Normal); Ketone-Dipstick 5 mg/dl (Negative); Leukocyte Esterase-Dipstick 500 /ul (Negative); Nitrite-Dipstick Negative (Negative); Occult Blood-Urine 150 /ul (Negative); Protein-Dipstick 30 mg/dl (Negative); Urine Bilirubin Dipstick Negative (Negative); Urine Clarity Sl. Cloudy (Clear); Urine Urobilinogen Normal (Normal)
[2024-03-17] MEDS: Ceftriaxone 1 GM/50 ML BAG IV (16:34)
[2024-03-17] MEDS: 0.9% Normal Saline (1000mL) 1,000 ML 150 ML IV (16:35)
[2024-03-17 16:41] LABS: Bacteria 1+ /hpf (None Seen); Renal Epithelial Cells 0 SEEN /hpf (0-5); White Blood Cells 5-10 SEEN /hpf (0-5)
--- NOTE | 2024-03-17 16:46 | CT_ITS ---
STUDY: CT ABDOMEN AND PELVIS WITH CONTRAST REASON FOR EXAM: Male, 68 years old. fever, abdominal pain, dysuria RADIATION DOSAGE (If Supplied By Facility): CTDIvol = ( 19.77 ) mGy, DLP = ( 1439.24 ) mGycm TECHNIQUE: Transaxial images were obtained from the dome of the diaphragm to the symphysis pubis without oral contrast. IV 100mL Isovue-300 was administered. Sagittal and coronal images were reconstructed. Individualized dose optimization techniques were used for this CT. COMPARISON: CT abdomen and pelvis February 12, 2024. FINDINGS: The visualized lung bases are unremarkable. Calcific coronary artery disease. Normal liver. Normal gallbladder and extrahepatic biliary system. Normal spleen. Normal pancreas. Normal bilateral adrenal glands. Moderate bilateral hydronephrosis and hydroureter unchanged. no radiodense urolithiasis. Normal visualized stomach. Multiple air-fluid levels noted in the small bowel. Normal colon. The appendix is visualized and appears normal. Normal abdominal aorta. Normal inferior vena cava. Normal retroperitoneum. Small diverticulum of the bladder anteriorly. Bladder is circumferentially thickened but incompletely distended. Prominent prostate. Normal abdominal wall. Ossification anterior longitudinal ligament. spinal stenosis. Right total hip arthroplasty. Ossification of the sacroiliac joints anteriorly bilaterally. CT/Abdomen/Pelvis W IV Cont ONLY IMPRESSION: Moderate bilateral hydronephrosis unchanged. No radiodense urolithiasis. Possible cystitis. Bladder diverticulum. Ileus. Electronically Signed: Kain Abbott MD at 17:23 EDT ,
--- NOTE | 2024-03-17 17:10 | PCM.HP.STD ---
HPI - General General Date of Admission: 03/17/24 Date of Service: 03/17/24 Chief Complaint: Fever, dysuria, recent re-usage of self catheterization devices. HPI Narrative The patient is a 68 y/o M w/ PMHx: Known BL hydronephrosis, HTN, HLD, Chronic normocytic anemia, Suspected CKD stage III unclear subtype, Obesity who presents to the [facility] ED on 03/17/24 with history of dysuria that started in the evening prior with normally chronic self-catheterization however unfortunately patient's been running low on catheters so he has been inappropriately reusing some of them and washing them with onset of fever up to 102.1 on a.m. on day of presentation and chills starting the evening prior with no specific abdominal pain but given these symptoms and concern for urinary tract infection prompted ED evaluation. Unfortunately in the system there is no previous noted urine cultures with growth. Workup in the ED included T99.4, heart rate 117, BP 146/68, respiratory rate 18, 98% on room air with most recent repeat vital signs heart rate 74, BP 132/77, respiratory rate 16, 98% on room air, CBC with WBC 16.7, human 12.4, MCV 89, platelet 179 with left shift and lymphopenia, BMP with sodium 133, BUN/creatinine 26/2.02, GFR 35, glucose 130, lactic acid 1.2, urinalysis with noted cloudy appearing urine, protein 30, ketone 5, occult blood 150, nitrate negative, leukocyte Estrace 500 with urine WBCs 5-10 with 1+ urine bacteria, urine culture pending per ED, blood culture x 2 pending per ED, CT abdomen and pelvis pending upon evaluation request. In the ED patient ministered maintenance IV fluids and IV Rocephin 1 g x 1. [facility] Medical History Chronic anemia CKD (chronic kidney disease), stage III Obesity Self-catheterizes urinary bladder BPH (benign prostatic hyperplasia) Obstructive uropathy Hyperlipidemia Hypertension Home Medications ?Medication ?Instructions ?Recorded ?Last Taken ?Type amlodipine 10 mg tablet 10 mg PO DAILY HTN 03/21/20 03/17/24 History simvastatin 20 mg tablet 20 mg PO QHS CHOLESTEROL 03/21/20 03/16/24 History lisinopril 20 mg tablet 20 mg PO DAILY 02/12/24 03/17/24 History tamsulosin 0.4 mg capsule (Flomax) 0.4 mg PO QHS 03/17/24 03/16/24 History Allergy/AdvReac Type Severity Reaction Status Date / Time No Known Allergies Allergy Verified 03/17/24 14:10 Family History (Updated 03/17/24 @ 17:[address] Reina Copeland MD) Mother CVA (cerebral vascular accident) Hypertension Father Prostate cancer Surgical History (Updated 03/17/24 @ 17:[address] Reina Copeland MD) History of total right hip replacement Social History (Updated 03/17/24 @ 17:[address] Reina Copeland MD) household members: spouse Smoking Status: Never smoker alcohol intake: never substance use type: does not use ROS ROS Narrative Admission Review of Systems: CONSTITUTIONAL: No weight loss, + fever, chills, weakness or fatigue. HEENT: Eyes: No visual loss, blurred vision, double vision or yellow sclerae. Ears, Nose, Throat: No hearing loss, sneezing, congestion, runny nose or sore throat. SKIN: No rash or itching, lesions, wounds. CARDIOVASCULAR: No chest pain, chest pressure or chest discomfort, palpitations, edema, orthopnea, syncopal events. RESPIRATORY: No shortness of breath, cough or sputum, wheezing, hemoptysis. GASTROINTESTINAL: No anorexia, nausea, vomiting or diarrhea, abdominal pain, melena, BRBPR. GENITOURINARY: + Dysuria, history of urinary retention with BPH with self-catheterization. NEUROLOGICAL: No headache, dizziness, syncope, paralysis, ataxia, numbness or tingling in the extremities, focal weakness, change in bowel or bladder control, seizure. MUSCULOSKELETAL: + muscle, back pain, joint pain or stiffness. HEMATOLOGIC: + Chronic anemia. No easy bleeding or bruising. LYMPHATICS: No enlarged nodes. No history of splenectomy. PSYCHIATRIC: No history of depression or anxiety. ENDOCRINOLOGIC: No reports of sweating, cold or heat intolerance. No polyuria or polydipsia. ALLERGIES: No history of asthma, hives, eczema or rhinitis. Vital Signs Vital Signs Vital Signs: 03/17/24 14:10 03/17/24 16:09 Temperature 99.4 F H Temperature Source Temporal Pulse Rate 117 H 74 Respiratory Rate 18 16 Blood Pressure 146/68 H 132/77 H Blood Pressure Mean 94 95 Pulse Ox 98 98 Oxygen Delivery Method Room Air Room Air Weight Weight: 238 lb 14.4 oz Body Mass Index (BMI) 34.2 Physical Exam Narrative Physical Examination: General: Awake, alert, oriented x 3 and cooperative, seated upright in the ED bed, mildly fatigued but no acute distress. Skin: Normal color, normal turgor, no icterus, no cyanosis except occasional staged ecchymoses. HEENT: AT/NC, EOMI, PERRLA, moderately dry MM, no carotid bruits or JVD noted. Lungs: Mildly diminished, greater bases, proper effort, no rales, ronchi or wheezing. Heart: Mildly tachycardic with regular rhythm; no gallop, rub audible. Abdomen: Soft, obese, NTTP including in the suprapubic region,, ND, moderately hyperactive BS, no H appreciated SM. Extremities: No cyanosis, no clubbing, no marked peripheral edema, Neurological: Patient awake, alert, oriented as noted, cognitive function intact; pupils equally reactive to light and accommodation, cranial nerves grossly normal, moving all 4 extremities, no focal deficits, strength mildly to moderately global decreased secondary to acute complaints. Psychiatric: Affect appears fatigued otherwise normal, no acute evidence of depressive or anxiety feelings. Results Lab / Micro Data 03/17/24 14:30 03/17/24 14:30 Labs: Laboratory Results - last 24 hr 03/17/24 14:30: WBC 16.7 H, RBC 4.09 L, Hgb 12.4 L, Hct 36.4 L, MCV 89.0, MCH 30.3, MCHC 34.1, RDW Std Deviation 44.4 H, RDW Coeff of Izabel 13.8, Plt Count 179, MPV 10.0, Immature Gran % (Auto) 0.900, Neut % (Auto) 85.8 H, Lymph % (Auto) 3.5 L, [place] % (Auto) 9.6, Eos % (Auto) 0.0, Baso % (Auto) 0.2, Absolute Neuts (auto) 14.4 H, Absolute Lymphs (auto) 0.59 L, Nucleated RBC % 0, Differential Comment SEE COMMENTS, Diff Path Review May foll, Platelet Estimate ADEQUATE, RBC Morphology N CHROM, Anisocytosis RARE, Sodium 133 L, Potassium 3.7, Chloride 101, Carbon Dioxide 24.0, Anion Gap 8, BUN 26 H, Creatinine 2.02 H, Estim Creat Clear Calc 43.74, Est GFR (MDRD) Af Amer 43 L, Est GFR (MDRD) Non-Af 35 L, BUN/Creatinine Ratio 12.9, Glucose 130 H, Lactic Acid 1.2, Calcium 9.0 03/17/24 15:35: Urine Color Yellow, Urine Clarity Sl. Cloudy, Urine pH 6.0, Ur Specific [place] 1.010, Urine Protein 30 H, Urine Glucose (UA) Normal, Urine Ketones 5 H, Urine Occult Blood 150 H, Urine Nitrite Negative, Urine Bilirubin Negative, Urine Urobilinogen Normal, Ur Leukocyte Esterase 500 H, Urine RBC 0 SEEN, Urine WBC 5-10 SEEN, Ur Squamous Epith Cells 0 SEEN, Ur Renal Epithelial Cell 0 SEEN, Urine Bacteria 1+, Urine Mucus 0 SEEN Assessment & Plan Assessment/Plan (1) Acute UTI: PLAN: Plan The patient is a 68 y/o M w/ PMHx: Known BL hydronephrosis, HTN, HLD, Chronic normocytic anemia, Suspected CKD stage III unclear subtype, Obesity who presents to the [facility] ED on 03/17/24 with history of dysuria that started in the evening prior with normally chronic self-catheterization however unfortunately patient's been running low on catheters so he has been inappropriately reusing some of them and washing them with onset of fever up to 102.1 on a.m. on day of presentation and chills starting the evening prior with no specific abdominal pain but given these symptoms and concern for urinary tract infection prompted ED evaluation. #1. Acute Complicated Urinary Tract Infection secondary to chronic intermittent self-catheterization secondary to underlying BPH with obstructive uropathy with unfortunately inappropriate reuse of catheterization device: Will admit to [facility] upon ED evaluation remarkable, pending UCx, will judiciously hydrate IVFs, monitor I/Os, continue IV Rocephin w/ transition as able pending sensitivities and speciation, will continue self-catheterization per home regimen, strongly educate patient about the risks of reusing catheters, case management consulted to assist with ensuring patient gets his appropriate catheterization devices to his home in a timely fashion to avoid this recurrence. Will continue patient home Flomax regimen. Encourage continued follow-up with his urologist at [facility]. Bld cx x 2 obtained in the ED. #2. FERNANDO on Suspected Chronic Kidney Disease Stage III unclear subtype however previously GFR during a focal evaluation was noted to be in stage IV range thus unclear exact staging: Admission BUN/Cr 26/2.02, baseline renal function most recently was noted 02/15/2024 2.86 however this presentation was evaluation for acute kidney injury and prior to this from outside records BUN/creatinine had been 21/1.36, will hydrate and hold nephrotoxic medication, repeat BMP in AM to further elucidate. If not improving would obtain FeNa, possibly Nephrology involvement. Currently pending CT A/P. Patient does have known moderate bilateral hydronephrosis and is following with urology. #3. Hypertension: Continue home regimen including amlodipine, holding lisinopril given concern for FERNANDO as noted above, add back once appropriate, PRN hydralazine. #4. Chronic normocytic anemia: Admission hemoglobin 12.4, MCV 89, baseline hemoglobin noted to primarily be 11 range however these are labs that were more recent 02/2024 and last lab prior to this was in 2019, will continue to trend CBC. #5. Hyperlipidemia: We will continue patient on statin therapy. #6. Obesity: Weight loss and lifestyle changes encouraged. #7. DVT prophylaxis: Lovenox. #8. CODE status: Patient MARINA is his who is present and living will is currently in place. Discussed CODE status at length including difference between FULL code, DNR-CCA and DNR-CC status. Following discussions about the differences in these status, requested Full Code status. Charges/Coding Visit Charges Inpatient E&M: 60482 Init Hosp L3
--- NOTE | 2024-03-17 17:17 | NURSING ---
DR PALMER FOR DR RAMIREZ
--- NOTE | 2024-03-17 17:18 | NURSING ---
MED SURG WHITE UTI, LEUKOCYTOSIS, FEBRILE ILLNESS
[2024-03-17] MEDS: Acetaminophen 325 MG Tablet 650 MG PO (19:29)
[2024-03-17] MEDS: 0.9% Normal Saline (1000mL) 1,000 ML 999 ML IV (19:30)
[2024-03-17] MEDS: 0.9% Normal Saline (1000mL) 1,000 ML 100 ML IV (20:30)
[2024-03-17] MEDS: Tamsulosin HCl 0.4 MG Capsule PO (22:09)
[2024-03-17] MEDS: Atorvastatin Calcium 10 MG Tablet PO (22:09)
[2024-03-18 04:59] LABS: Absolute Lymphocyte Count 0.83 X10^3/uL (0.83-4.51); Absolute Neutrophil Count 14.4 X10^3/uL (2.0-7.7); Basophil# 0.05 X10^3/uL; Basophil% 0.3 % (0-1); Eosinophil# 0.08 X10^3/uL; Eosinophils% 0.5 % (0-5); Hematocrit 33.5 % (40-54); Hemoglobin 10.9 g/dL (13.0-16.5); Lymphocyte # 0.83 X10^3/ul (0.83-4.51); Lymphocyte % 4.7 % (19-41); Mean Corp Hgb Conc 32.5 g/dL (32-36); Mean Corpuscular Hgb 29.8 pg (27.0-32.0); Mean Corpuscular Volume 91.5 fL (80-94); Mean Platelet Vol. 10.4 fl (6.2-12.0); Monocyte# 1.75 X10^3/uL; Monocyte% 9.9 % (0-10); NRBC Flagged by Analyzer 0 % (0-5); Neutrophil # 14.39 X10^3/uL (2.7-7.7); POSITIVE DIFFERENTIAL YES; Platelet Count 164 K/mm3 (150-450); RBC Distribution Width CV 14.1 % (11.6-14.6); RBC Distribution Width SD 47.7 fl (35.1-43.9); Red Blood Count 3.66 M/mm3 (4.6-6.2); White Blood Count 17.7 K/mm3 (4.4-11.0)
[2024-03-18 05:00] VITALS: BP 150/69; PULSE 97; RESP 18; TEMP 37.5; O2SAT 100
[2024-03-18 05:30] LABS: AST(SGOT) 10 U/L (15-37); Alanine Aminotransfer ALT/SGPT 20 U/L (16-61); Albumin, Serum 3.1 g/dL (3.2-5.0); Alkaline Phosphatase 44 U/L (45-117); Anion Gap 7 (5-15); BUN 28 mg/dL (7-18); BUN/Creat Ratio 15.7 RATIO (10-20); Calcium,Total 8.6 mg/dL (8.5-10.1); Chloride 106 mmol/L (98-107); Creatinine, Serum 1.78 mg/dL (0.70-1.30); EST Glomerular Filtration Rate 41 mL/min (>60); Est Glom Filt Rate - Afr Amer 49 mL/min (>60); Estimated Creatinine Clearance 49.03 ml/min; Globulin 3.1 g/dL (2.2-4.2); Glucose 148 mg/dL (74-106); Potassium 4.1 mmol/L (3.5-5.1); Protein, Total 6.2 g/dL (6.4-8.2); Sodium Level 138 mmol/L (136-145)
[2024-03-18] MEDS: 0.9% Normal Saline (1000mL) 1,000 ML 100 ML IV (05:35)
[2024-03-18] MEDS: Acetaminophen 325 MG Tablet 650 MG PO ×2 (05:35→21:06)
[2024-03-18 06:00] VITALS: BMI 33.3
[2024-03-18 06:23] LABS: Differential Indicated SCAN CRITERIA MET
[2024-03-18 08:04] VITALS: BP 110/63; PULSE 82; RESP 18; TEMP 37.1; O2SAT 97
[2024-03-18] MEDS: amLODIPine 10 MG Tablet PO (08:10)
[2024-03-18] MEDS: Enoxaparin 40 MG/0.4 ML Syringe SC (08:10)
[2024-03-18 09:50] LABS: Differential Comment SCANNED
--- NOTE | 2024-03-18 10:00 | CASEMGMT ---
Addendum entered by Sarahi Munoz 03/18/24 13:47: Pt made RN CM aware that his catheters will not arrive until Thursday. Spoke with pt nurse who states pt can be given enough caths to go home with until his supplies arrive. RN CM into pt room and pt is aware of this. He denies further needs. Addendum entered by Sarahi Munoz 03/18/24 10:53: Pt is indep with self cathing and denies any issues with this. Original Note: RN CM Assessment: Face to Face with pt for initial transition planning/care coordination assessment. RN ENRIQUE introduced self and role at [facility], pt voices understanding and consents to assessment. Pt is A&O x4 and answers all questions appropriately at this time. Pt sitting up in bed in no distress. Care providers, pharmacy, and demographics verified/updated. Admitting Dx: acute complicated UTI, FERNANDO PCP:Brad Carcamo NP Specialists:mark Lucero Pharmacy: [facility] Insurance: Yelena MONTGOMERY Prescription Benefit: yes LNOK: Lynda Hendricks, Living Arrangements: Pt lives with in a two story home with 2 steps to enter in the front with a rail. 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 Pt denies concerns at home. Transportation: Pt drives self and denies concerns with transportation. DME:Denies HHC/SNF: Denies hx of Pt states no concerns with going home at time of dc. Pt states that he started self cathing a month ago and was given supplies by his urologist while he was getting supplies ordered from [employer]. He states the company had a delay as they were determining which insurance was primary and secondary. He states he expects a shipment today and from here on out it should be delivered on time. Pt did call his uro when his supplies ran out but they did not have any to give. He is aware of options of places that he could try should this happen again. He does have the sasha to reorder and is able to use this. He will receive a shipment for 3 mos. Pt will let [facility] know today that he received his supplies and RN CM will follow up if not. Pt has rx for these supplies. Discussed options for receiving swabs for cleaning at site. Pt states no further concerns/needs. CM to follow. Advised pt to ask CM if any further question/concerns/needs arise, voices understanding. Pt Goal: Home Plan: Home Fernanda MEAD CM
[2024-03-18] MEDS: Ceftriaxone 1 GM/50 ML BAG IV (10:48)
[2024-03-18] MEDS: 0.9% Saline Lock 10 ML Syringe IV (11:49)
[2024-03-18 11:55] LABS: Pathologist Review Reviewed
[2024-03-18 11:56] LABS: Pathologist Review Reviewed
--- NOTE | 2024-03-18 12:14 | PCM.PN.HOSP ---
Reason for Visit Reason for Visit: Diagnoses Urinary tract infection, site not specified (03/17/24) Subjective Subjective Patient was seen and examined today, he states he feels much better today, patient's white blood cell count is a little higher than yesterday. Patient is afebrile. Objective Data Objective Data Vital Signs: Vital Signs Temp Pulse Resp BP Pulse Ox O2 Del Method 98.7 F 82 18 110/63 97 Room Air 03/18/24 08:04 03/18/24 08:04 03/18/24 08:04 03/18/24 08:04 03/18/24 08:04 03/18/24 08:04 Oxygen Delivery Method Room Air Weight: 105.6 kg Body Mass Index (BMI) 33.3 Intake & Output: Intake and Output for Last 24 Hours 03/16/24 03/17/24 03/18/24 23:59 23:59 23:59 Intake Total 1492.5 / 1892.5 2230.00 / 2230.00 Output Total 800 / 800 Balance 1492.5 / 1892.5 1430.00 / 1430.00 Lab / Micro Data 03/18/24 04:09 03/18/24 04:09 Labs: Laboratory Results - last 24 hr 03/17/24 14:30: WBC 16.7 H, RBC 4.09 L, Hgb 12.4 L, Hct 36.4 L, MCV 89.0, MCH 30.3, MCHC 34.1, RDW Std Deviation 44.4 H, RDW Coeff of Izabel 13.8, Plt Count 179, MPV 10.0, Immature Gran % (Auto) 0.900, Neut % (Auto) 85.8 H, Lymph % (Auto) 3.5 L, [place] % (Auto) 9.6, Eos % (Auto) 0.0, Baso % (Auto) 0.2, Absolute Neuts (auto) 14.4 H, Absolute Lymphs (auto) 0.59 L, Nucleated RBC % 0, Differential Comment SEE COMMENTS, Diff Path Review Reviewed, Platelet Estimate ADEQUATE, RBC Morphology N CHROM, Anisocytosis RARE, Sodium 133 L, Potassium 3.7, Chloride 101, Carbon Dioxide 24.0, Anion Gap 8, BUN 26 H, Creatinine 2.02 H, Estim Creat Clear Calc 43.74, Est GFR (MDRD) Af Amer 43 L, Est GFR (MDRD) Non-Af 35 L, BUN/Creatinine Ratio 12.9, Glucose 130 H, Lactic Acid 1.2, Calcium 9.0 03/17/24 15:35: Urine Color Yellow, Urine Clarity Sl. Cloudy, Urine pH 6.0, Ur Specific [place] 1.010, Urine Protein 30 H, Urine Glucose (UA) Normal, Urine Ketones 5 H, Urine Occult Blood 150 H, Urine Nitrite Negative, Urine Bilirubin Negative, Urine Urobilinogen Normal, Ur Leukocyte Esterase 500 H, Urine RBC 0 SEEN, Urine WBC 5-10 SEEN, Ur Squamous Epith Cells 0 SEEN, Ur Renal Epithelial Cell 0 SEEN, Urine Bacteria 1+, Urine Mucus 0 SEEN 03/18/24 04:09: WBC 17.7 H, RBC 3.66 L, Hgb 10.9 L, Hct 33.5 L, MCV 91.5, MCH 29.8, MCHC 32.5, RDW Std Deviation 47.7 H, RDW Coeff of Izabel 14.1, Plt Count 164, MPV 10.4, Immature Gran % (Auto) 3.600 H, Neut % (Auto) 81.0 H, Lymph % (Auto) 4.7 L, [place] % (Auto) 9.9, Eos % (Auto) 0.5, Baso % (Auto) 0.3, Absolute Neuts (auto) 14.4 H, Absolute Lymphs (auto) 0.83, Nucleated RBC % 0, Differential Comment SCANNED, Diff Path Review Reviewed, Sodium 138, Potassium 4.1, Chloride 106, Carbon Dioxide 25.0, Anion Gap 7, BUN 28 H, Creatinine 1.78 H, Estim Creat Clear Calc 49.03, Est GFR (MDRD) Af Amer 49 L, Est GFR (MDRD) Non-Af 41 L, BUN/Creatinine Ratio 15.7, Glucose 148 H, Calcium 8.6, Total Bilirubin 0.70, AST 10 L, ALT 20, Alkaline Phosphatase 44 L, Total Protein 6.2 L, Albumin 3.1 L, Globulin 3.1, Albumin/Globulin Ratio 1.0 Micro: Microbiology 03/17/24 16:45 Urine, Clean Catch Urine 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 No radiodense urolithiasis. Possible cystitis. Bladder diverticulum. Ileus. Electronically Signed: Kain Abbott MD at 17:23 EDT , Physical Exam Const alert, oriented x3, no apparent distress, average body habitus and healthy appearing General Appearance: cooperative, well kempt and well developed Orientation / Consciousness: awake, oriented to person, oriented to place and oriented to time HEENT normocephalic, head/scalp atraumatic and moist oral mucous membranes Eyes PERRL, EOMs intact bilaterally and conjunctivae normal Neck supple, no JVD, thyroid normal and no carotid bruits General: trachea midline Resp normal respiratory effort, no retractions, no use of accessory muscles and clear to auscultation bilaterally Auscultation: Negative for rales, rhonchi or wheezes Cardio regular rate, regular rhythm, S1 normal heart sound, S2 normal heart sound, no murmurs, no rub and no gallops GI normal to inspection, nondistended, normoactive bowel sounds, soft to palpation, non-tender and non-distended Extremity no clubbing, cyanosis or edema Skin no rashes or lesions noted General Skin Exam: no breakdown Neuro oriented x3, CN's II-XII intact bilaterally, moves all extremities, no focal motor deficits and no sensory deficits noted Sensorium / Orientation: awake and alert Speech: speech normal Psych affect normal Assessment & Plan Assessment/Plan (1) Acute UTI: PLAN: Plan 1. Acute cystitis associated with [id number] continue IV Rocephin at this time, await urine culture results #2 chronic kidney disease stage IIIb-complicates care, management, recovery, and prognosis #3 essential hypertension-patient is on lisinopril and amlodipine, this will be adjusted as necessary #4 hyperlipidemia-patient is on simvastatin Total clinical time spent by myself addressing the patient's medical issues, reviewing all of his data, and collaborating with patient's care team: 35 minutes Charges/Coding Visit Charges Inpatient E&M: 20539 Subs Hosp L2
--- NOTE | 2024-03-18 14:00 | CASEMGMT ---
Social Work SW met with pt to discuss advance directives.? Pt confirms she has completed a living will and health care POA naming , Lynda.? Pt notified that documents are not on file at [facility] and SW requested they be brought in for scanning into the EMR.? DAYO Muhammad
[2024-03-18 14:36] VITALS: BP 152/56; PULSE 89; RESP 18; TEMP 37.1; O2SAT 99
--- NOTE | 2024-03-18 15:14 | CHAPLAIN ---
Type of Pastoral Visit _x__ Initial Visit ___ Follow-up Visit ___ On-call Visit ___ General Patient Visit ___ Spiritual Assessment ___ Family Conference ___ Bereavement ___ Rapid Response ___ Code Blue ___ Other (describe below) Pastoral Care Referral From _x__ Patient ___ Family ___ Nurse ___ Physician ___ Flower Cutter ___ Bench Press Operator ___ Other (describe below) Sacrament/Intervention _x__ Active listening ___ Anointing ___ Latter-Day ___ Bereavement ___ Communion ___ Mer exploration ___ _x__ Life review _x__ Prayer ___ Reconciliation ___ Sacrament of Sick ___ Supportive presence ___ Wedding ___ Other (describe below) Pastoral Comments patient is welcoming and shows humor in dealing with his situation; spouse and sister are in the room and supportive; pt is actively working and wants to get back to that on Thursday; pt is hopeful about going home tomorrow and reports that spiritual care is important and he expresses thankfulness for it
[2024-03-18 20:59] VITALS: BP 137/72; PULSE 97; RESP 16; TEMP 37.7; O2SAT 97
[2024-03-18] MEDS: Tamsulosin HCl 0.4 MG Capsule PO (21:06)
[2024-03-18] MEDS: Atorvastatin Calcium 10 MG Tablet PO (21:06)
[2024-03-19 06:18] VITALS: BP 142/76; PULSE 67; RESP 16; TEMP 36.3; O2SAT 100
[2024-03-19 06:25] LABS: Absolute Lymphocyte Count 0.71 X10^3/uL (0.83-4.51); Absolute Neutrophil Count 10.1 X10^3/uL (2.0-7.7); Basophil# 0.03 X10^3/uL; Basophil% 0.3 % (0-1); Eosinophils% 0.8 % (0-5); Hematocrit 32.5 % (40-54); Hemoglobin 10.9 g/dL (13.0-16.5); Lymphocyte # 0.71 X10^3/ul (0.83-4.51); Lymphocyte % 5.9 % (19-41); Mean Corp Hgb Conc 33.5 g/dL (32-36); Mean Corpuscular Hgb 30.4 pg (27.0-32.0); Mean Corpuscular Volume 90.8 fL (80-94); Mean Platelet Vol. 10.2 fl (6.2-12.0); Monocyte# 0.79 X10^3/uL; Monocyte% 6.6 % (0-10); NRBC Flagged by Analyzer 0 % (0-5); Neutrophil % 84.6 % (47-70); Platelet Count 145 K/mm3 (150-450); RBC Distribution Width CV 14.3 % (11.6-14.6); RBC Distribution Width SD 47.8 fl (35.1-43.9); Red Blood Count 3.58 M/mm3 (4.6-6.2)
[2024-03-19] MEDS: amLODIPine 10 MG Tablet PO (08:02)
[2024-03-19 08:27] VITALS: O2SAT 96
[2024-03-19] MEDS: Ceftriaxone 1 GM/50 ML BAG IV (09:42)
--- NOTE | 2024-03-19 09:59 | PCM.DC ---
Discharge Instructions Diet Discharge Diet: No restrictions and - (limit carbohydrates) Activity Discharge Activity: Return to Normal Activity Weight Bearing Status: Full weight bearing Follow Up Care Test Results: Test results from this visit will be discussed in further detail at your follow-up appointment, if applicable. Discharge Plan Admission Admit Date/Time: 03/17/24 17:13 Primary Reason for Your Visit: cystitis Attending Provider: Adam Peres Primary Care Provider: Brad Carcamo NP Consulting Providers: Reina Copeland Discharge Orders/Prescriptions Prescriptions: New ciprofloxacin HCl [Cipro] 500 mg tablet 500 mg PO BID Qty: 14 0RF Rx Instructions: start on 03/20/24 Continued amlodipine 10 MG tablet 10 mg PO DAILY simvastatin 20 MG tablet 20 mg PO QHS lisinopril 20 mg tablet 20 mg PO DAILY tamsulosin [Flomax] 0.4 mg capsule 0.4 mg PO QHS Referrals / Follow Up: Brad Carcamo NP, [facility] [facility] [Primary Care Provider] - See Referral Note (in two weeks, recommend repeating kidney function test) Disposition Disposition (needs filled in before D/C Order can be placed): Home, Self Care
--- NOTE | 2024-03-19 10:25 | DS.PCM_ITS ---
Providers Date of Admission: 03/17/24 Date of Discharge: 03/19/24 Primary Care Physician: WILMA Lan Reason For Visit: ACUTE COMPLICATED UTI, FERNANDO Diagnosis Discharge Diagnosis (1) Acute UTI: Status: Acute Code(s): N39.0 - Urinary tract infection, site not specified Plan 1. Acute cystitis associated with [id number] continue IV Rocephin at this time, await urine culture results #2 chronic kidney disease stage IIIb-complicates care, management, recovery, and prognosis #3 essential hypertension-patient is on lisinopril and amlodipine, this will be adjusted as necessary #4 hyperlipidemia-patient is on simvastatin Total clinical time spent by myself addressing the patient's medical issues, reviewing all of his data, and collaborating with patient's care team: 35 minutes Medications at Discharge Home Medications amlodipine 10 mg tablet 10 mg PO DAILY HTN 03/21/20 simvastatin 20 mg tablet 20 mg PO QHS CHOLESTEROL 03/21/20 lisinopril 20 mg tablet 20 mg PO DAILY 02/12/24 tamsulosin 0.4 mg capsule (Flomax) 0.4 mg PO QHS 03/17/24 ciprofloxacin HCl 500 mg tablet (Cipro) 500 mg PO BID #14 tabs 03/19/24 Hospital Course Operations None Procedures None Summary of Care Provided Minutes Spent on Discharge: 31 Hospital Course: This 68-year-old white male was seen in the emergency room at [facility] with complaints of dysuria and fever, his dysuria started yesterday and the fever was this morning before he came to the ER. Patient chronically self catheterizes himself due to urinary retention. Labs done in the emergency room showed the white blood cell count to be 16.7, hemoglobin was 12.4, patient's creatinine was 2.02 and BUN was 26. Urinalysis showed 5-10 WBCs and +1 bacteria. Patient's presentation was in keeping with an acute cystitis, he was admitted to [place] [id number] and placed on IV antibiotics. Labs were monitored, there was a further drop in his creatinine. Patient's lisinopril had been held based on concerns that his creatinine was elevated. On 03/19/2024, patient was seen and examined: On examination he appeared in good health and spirits. Vital signs as documented. Skin warm and dry and without overt rashes. Neck without JVD, neck was supple, trachea midline, thyroid was normal. Lungs clear bilaterally, normal air movement was noted. Heart exam notable for regular rhythm, normal sounds and absence of murmurs, rubs or gallops. Abdomen unremarkable and without evidence of organomegaly, masses, or abdominal aortic enlargement. Bowel sounds are present, abdomen is not distended. Extremities nonedematous, no cyanosis was noted, no clubbing was noted. Neuro: Cranial nerves II through XII are grossly intact, no focal motor deficits were noted, sensation to light touch and pinprick intact, motor exam 5/5 throughout. Psych: Patient is alert and oriented x3, he does not appear anxious or depressed, he does not appear agitated. On 03/19/2024, patient was seen and examined and felt to be in stable condition for discharge home. Weight / BMI Weight Weight: 105.6 kg Body Mass Index (BMI) 33.3 ABG / Lab / Microbiology Data 03/19/24 05:44 03/18/24 04:09 Laboratory: Laboratory Results - last 24 hr 03/17/24 14:30: Diff Path Review Reviewed 03/18/24 04:09: Diff Path Review Reviewed 03/19/24 05:44: WBC 12.0 H, RBC 3.58 L, Hgb 10.9 L, Hct 32.5 L, MCV 90.8, MCH 30.4, MCHC 33.5, RDW Std Deviation 47.8 H, RDW Coeff of Izabel 14.3, Plt Count 145 L, MPV 10.2, Immature Gran % (Auto) 1.800 H, Neut % (Auto) 84.6 H, Lymph % (Auto) 5.9 L, [place] % (Auto) 6.6, Eos % (Auto) 0.8, Baso % (Auto) 0.3, Absolute Neuts (auto) 10.1 H, Absolute Lymphs (auto) 0.71 L, Nucleated RBC % 0 Microbiology: Microbiology 03/17/24 16:45 Urine, Clean Catch Urine Culture - Final Enterobacter cloacae complex D/C Instructions Discharge Diet: No restrictions and - (limit carbohydrates) Weight Bearing Status: Full weight bearing Meaningful Use Info Meaningful Use Meaningful Use Diagnoses (Choose all that apply): None applicable Ischemic Stroke Statin Dosing Therapy Reference: STATIN DOSE THERAPY REFERENCE: * Patients > 75 years receive moderate or high dose statin therapy. * Patients 75 years or YOUNGER should receive HIGH intensity statin dose unless contraindicated. You will be required to document reason for non-treatment if statin daily dose does not meet guidelines. HIGH DOSE STATIN THERAPY DAILY Atorvastatin > than or = to 40 mg Rosuvastatin > than or = to 20 mg Amlodipine + Atorvastatin > than or = to 2.5/40 mg Ezetimibe + Simvastatin 10/80 mg Simvastatin 80mg Discharge Plan Admission Admit Date/Time: 03/17/24 17:13 Primary Reason for Your Visit: cystitis Attending Provider: Adam Peres Primary Care Provider: Bard Carcamo NP Consulting Providers: Reina Copeland Discharge Orders/Prescriptions Prescriptions: New ciprofloxacin HCl [Cipro] 500 mg tablet 500 mg PO BID Qty: 14 0RF Rx Instructions: start on 03/20/24 Continued amlodipine 10 MG tablet 10 mg PO DAILY simvastatin 20 MG tablet 20 mg PO QHS lisinopril 20 mg tablet 20 mg PO DAILY tamsulosin [Flomax] 0.4 mg capsule 0.4 mg PO QHS Referrals / Follow Up: Brad Carcamo NP, [facility] [Primary Care Provider] - See Referral Note (in two weeks, recommend repeating kidney function test) Disposition Disposition (needs filled in before D/C Order can be placed): Home, Self Care Charges/Coding Visit Charges Inpatient E&M: 46048 Disch Hosp >30min
[2024-03-19 11:00] VITALS: BP 129/63; PULSE 80; RESP 18; TEMP 36.4; O2SAT 99
[2024-03-19 11:29] LABS: Hemoglobin A1c 4.9 % (3.8-5.6)
== END 2024-03-19 12:35 | disposition home or self-care (01) | DRG 699 ==
LOC: ED 17:21 → MS3 17:57
PROVIDERS: Admitting Provider Family Medicine; Emergency Provider Emergency Medicine; PCP Nurse Practitioner Family; Visit Provider Internal Medicine
DX: N99.89 Other postprocedural complications and disorders of genitourinary system (principal); N13.6 Pyonephrosis; N13.8 Other obstructive and reflux uropathy; N30.00 Acute cystitis without hematuria; N18.32 Chronic kidney disease, stage 3b; I12.9 Hypertensive chronic kidney disease with stage 1 through stage 4 chronic kidney disease, or unspecified chronic kidney disease; E78.5 Hyperlipidemia, unspecified; E66.9 Obesity, unspecified; N40.1 Benign prostatic hyperplasia with lower urinary tract symptoms; R33.8 Other retention of urine; Z96.641 Presence of right artificial hip joint; Z68.34 Body mass index [BMI] 34.0-34.9, adult
CPT/HCPCS: 36415; 74177; 80048; 80053; 81001; 83036; 83605; 85025; 87040; 87077; 87086; 87088; 87186; 94668; 99285; J7030; P9612; Q9967; A4216